=== PATIENT | male | born 1955 | race Caucasian/White ===

== ENCOUNTER 2021-09-16 13:15 | Emergency (ER) | payer OTHER ==
[~2021-09-16] VITALS: Ht 172.7 cm; Wt 81.8 kg
[2021-09-16] MEDS ORDERED: APIXABAN 5 MG TABLET PO ONE (17:00)
[2021-09-16] MEDS ORDERED: APIX5TAB PO (17:02)
[2021-09-16 17:38] VITALS: BP 128/75
== END 2021-09-16 17:40 | disposition home or self-care (01) ==
LOC: EMS 13:17
DX: I82.462 Acute embolism and thrombosis of left calf muscular vein (principal)
CPT/HCPCS: 93971; 99284